=== PATIENT | female | born 2000 | race Caucasian/White ===

== ENCOUNTER 2022-01-18 10:44 | Observation (INO) | payer BC ==
[2022-01-18] MEDS ORDERED: Ondansetron ODT 4 MG TAB ONE (11:09)
[2022-01-18] MEDS ORDERED: Pantoprazole 40 MG VIAL ONE ×2 (11:38→11:39)
[2022-01-18] MEDS ORDERED: Famotidine/PF 20 mg/2ml Vial ONE (11:40)
[2022-01-18 12:07] LABS: #Monocytes 0.8 10x3/uL (0.0-1.1); #Neutrophils 11.6 10x3/uL (1.5-8.4); %Basophils 0.3 % (0.0-2.0); %Lymphocytes 7.6 % (18.0-47.0); %Monocytes 5.6 % (0.0-10.0); Hemoglobin 13.3 g/dL (12.0-15.5); Mean Corpuscular HGB CONC 34.1 g/dL (32.0-36.0); Mean Corpuscular Hemoglobin 28.8 pg (27.0-33.0); Mean Corpuscular Volume 84.4 fl (81.6-98.3); Platelet Count 228 10x3/uL (150-450); RBC Distribution Width 12.7 % (11.5-14.5); Red Blood Cell (RBC) Count 4.62 10x6/uL (3.90-5.03); White Blood Cell (WBC) Count 13.4 10x3/uL (3.5-10.5)
[2022-01-18 12:35] LABS: BHCG - Serum Negative (NEGATIVE); Pregs Control Background? CLEAR/WHITE (CLR/WHITE); Pregs Control Bar Appear? YES (CONTROL BAR)
[2022-01-18 12:41] LABS: ALT (SGPT) 40 U/L (8-55); AST (SGOT) 54 U/L (5-34); Albumin 4.4 g/dL (3.5-5.0); Alkaline Phosphatase 52 U/L (40-110); Anion Gap 13 mmol/L (10-20); BUN (Urea Nitrogen) 9 mg/dL (7.0-18.7); Bilirubin, Total 0.4 mg/dL (0.2-1.2); Calc. Creatinine Clearance 0 mL/min (70-130); Calcium 8.9 mg/dL (7.8-10.44); Carbon Dioxide 21 mmol/L (22-29); Chloride 107 mmol/L (98-107); Globulin 2.4 g/dL (2.4-3.5); Glucose 106 mg/dL (70-105); Lipase 11 U/L (8-78); Potassium 3.8 mmol/L (3.5-5.1); Protein, Total 6.8 g/dL (6.0-8.3); Sodium 137 mmol/L (136-145)
[2022-01-18 12:47] LABS: Bilirubin Neg (Negative); Blood, Urine Negative (Negative); Clarity Cloudy (Clear); Glucose, Urine (Dipstick) Normal (Negative); Ketone, Urine 5 mg/dL (Negative); Leukocyte Negative (Negative); Nitrite Negative (Negative); Protein, Urine (Dipstick) Negative (Neg-Trace); Specific Gravity, Urine 1.015 (1.002-1.036); Urobilinogen Normal mg/dL (Less than 2)
[2022-01-18] MEDS ORDERED: Piperacillin/Tazobactam 4.5 GM VIAL ONE (15:36)
[2022-01-18 18:08] VITALS: BMI 28.8
[2022-01-18] MEDS ORDERED: Morphine 4 MG/ML VIAL SLOW IVP PRN (19:23)
[2022-01-18] MEDS ORDERED: Ondansetron ODT 4 MG TAB SL PRN (19:30)
[2022-01-18] MEDS ORDERED: Ondansetron PF 4 MG/2 ML Vial IVP PRN (19:30)
[2022-01-18] MEDS: Piperacillin/Tazobactam 3.375 GM in Sodium Chloride 0.9% 100 ML IVPB SCH (20:43)
[2022-01-18] MEDS: Lactated Ringer's 1,000 ML IV SCH (20:43)
[2022-01-19] MEDS: Piperacillin/Tazobactam 3.375 GM in Sodium Chloride 0.9% 100 ML IVPB SCH (04:13)
[2022-01-19] MEDS: Lactated Ringer's 1,000 ML IV SCH (05:36)
[2022-01-19] MEDS ORDERED: Ondansetron PF 4 MG/2 ML Vial IVP PRN (11:15)
[2022-01-19] MEDS ORDERED: D5 1/2 NS w/20 mEq KCL 1,000 ML IV SCH (11:15)
[2022-01-19] MEDS ORDERED: Morphine 4 MG/ML VIAL SLOW IVP PRN (11:15)
[2022-01-19] MEDS ORDERED: EPINEPHrine 1 MG/ML AMP ONE (11:35)
[2022-01-19] MEDS ORDERED: Iopamidol 15 ML ONE (11:36)
[2022-01-19] MEDS ORDERED: Bupivacaine PF 0.5% 30 ML VIAL ONE (11:36)
[2022-01-19] MEDS ORDERED: Piperacillin/Tazobactam 3.375 GM in Sodium Chloride 0.9% 100 ML IVPB SCH (12:00)
[2022-01-19] MEDS ORDERED: Dexmedetomidine 200 MCG/2 ML VIAL ONE (12:07)
[2022-01-19] MEDS ORDERED: Fentanyl 100 MCG/2 ML VIAL ONE (12:08)
[2022-01-19] MEDS ORDERED: PROPOFOL 20 ML ONE ×2 (12:08→13:12)
[2022-01-19] MEDS ORDERED: Dexamethasone 20 MG/5 ML VIAL ONE (12:09)
[2022-01-19] MEDS ORDERED: Rocuronium Bromide 10 MG/ML (10ML VIAL) ONE (12:09)
[2022-01-19] MEDS ORDERED: Ondansetron PF 4 MG/2 ML Vial ONE (12:09)
[2022-01-19] MEDS ORDERED: Metoclopramide HCl 10 MG/2 ML VIAL ONE (12:09)
[2022-01-19] MEDS ORDERED: Ketorolac Tromethamine 30 MG/ML VIAL ONE (12:09)
[2022-01-19] MEDS ORDERED: Lidocaine 2% PF 5 ML VIAL ONE (12:09)
[2022-01-19] MEDS ORDERED: Succinylcholine 200 MG/10 ml SYRINGE FS ONE (12:10)
[2022-01-19] MEDS ORDERED: HYDROcodone/Acetaminophen 5/325 mg Tablet PO PRN ×2 (12:18)
[2022-01-19] MEDS ORDERED: Acetaminophen 325 MG TAB PO PRN ×2 (12:18)
[2022-01-19] MEDS ORDERED: ePHEDrine Sulfate 50 MG/10 ML VIAL ONE (12:47)
[2022-01-19] MEDS ORDERED: Glycopyrrolate 0.2 MG/ML 5 ML SYRINGE ONE (13:32)
[2022-01-19 15:46] LABS: SARS-CoV-2 PCR by NAA Not Detected (NotDetected)
[2022-01-19 16:00] VITALS: BP 101/60; TEMP 96.5
== END 2022-01-19 16:00 | disposition home or self-care (01) ==
LOC: CSHERS 10:44 → CSHTELE 17:45
PROVIDERS: ADMIT Surgery; ATTEND Surgery
PROC: 0FT44ZZ Resection of Gallbladder, Percutaneous Endoscopic Approach (ICD-10-PCS; principal; 2022-01-18)
PROC: BF031ZZ Plain Radiography of Gallbladder and Bile Ducts using Low Osmolar Contrast (ICD-10-PCS; 2022-01-18)
DX: K80.12 Calculus of gallbladder with acute and chronic cholecystitis without obstruction (principal); K21.9 Gastro-esophageal reflux disease without esophagitis; Z79.899 Other long term (current) drug therapy
CPT/HCPCS: 47532; 71045; 74177; 76705; 80053; 81003; 83690; 84484; 84703; 85025; 88304; 93005; 96365; 96375; 96376; C1713; C9113; G0378; J0171; J1100; J1885; J2001; J2405; J2543; J2704; J2765; J3010; J3480; J3490; J7120; Q0162; Q9967; S0020; S0028; U0003; U0005

== ENCOUNTER 2022-01-19 20:44 | Observation (INO) | payer BC, SELFPAY ==
[2022-01-19 21:15] LABS: #Basophils 0.1 10x3/uL (0.0-0.2); #Monocytes 0.2 10x3/uL (0.0-1.1); #Neutrophils 10.4 10x3/uL (1.5-8.4); %Basophils 0.4 % (0.0-2.0); %Lymphocytes 4.5 % (18.0-47.0); %Monocytes 1.4 % (0.0-10.0); %Neutrophils 93.4 % (40.0-75.0); Hemoglobin 13.8 g/dL (12.0-15.5); Mean Corpuscular Hemoglobin 28.8 pg (27.0-33.0); Mean Corpuscular Volume 84.8 fl (81.6-98.3); Mean Platelet Volume 10.7 fl (7.4-10.4); Platelet Count 237 10x3/uL (150-450); RBC Distribution Width 12.7 % (11.5-14.5); Red Blood Cell (RBC) Count 4.79 10x6/uL (3.90-5.03); White Blood Cell (WBC) Count 11.1 10x3/uL (3.5-10.5)
[2022-01-19] MEDS ORDERED: Morphine 4 MG/ML VIAL ONE ×2 (21:23→22:27)
[2022-01-19 21:26] LABS: ALT (SGPT) 67 U/L (8-55); AST (SGOT) 53 U/L (5-34); Albumin 4.9 g/dL (3.5-5.0); Alkaline Phosphatase 57 U/L (40-110); Anion Gap 16 mmol/L (10-20); BUN (Urea Nitrogen) 8 mg/dL (7.0-18.7); Bilirubin, Total 0.5 mg/dL (0.2-1.2); Calc. Creatinine Clearance 0 mL/min (70-130); Calcium 9.8 mg/dL (7.8-10.44); Carbon Dioxide 18 mmol/L (22-29); Chloride 109 mmol/L (98-107); Globulin 2.7 g/dL (2.4-3.5); Glucose 168 mg/dL (70-105); Protein, Total 7.6 g/dL (6.0-8.3); Sodium 139 mmol/L (136-145)
[2022-01-19] MEDS ORDERED: Ondansetron PF 4 MG/2 ML Vial ONE (22:27)
[2022-01-19] MEDS ORDERED: Pantoprazole 40 MG VIAL ONE (22:28)
[2022-01-19] MEDS ORDERED: Acetaminophen 325 MG TAB PO PRN (23:15)
[2022-01-19] MEDS ORDERED: Ondansetron PF 4 MG/2 ML Vial IVP PRN (23:15)
[2022-01-19] MEDS ORDERED: Ondansetron ODT 4 MG TAB SL PRN (23:15)
[2022-01-19] MEDS ORDERED: Lorazepam 2 MG/ML VIAL ONE (23:30)
[2022-01-20 00:32] VITALS: BMI 28.8
[2022-01-20 00:42] LABS: Lactic Acid 0.7 mmol/L (0.5-2.2)
[2022-01-20] MEDS: Sodium Chloride 0.9% 1,000 ML IV SCH ×2 (00:43→09:04)
[2022-01-20] MEDS: Morphine 4 MG/ML VIAL SLOW IVP PRN ×3 (02:04→11:05)
[2022-01-20 06:29] LABS: Lactic Acid 0.7 mmol/L (0.5-2.2)
[2022-01-20 06:34] LABS: #Neutrophils 11.6 10x3/uL (1.5-8.4); %Basophils 0.1 % (0.0-2.0); %Eosinophils 0.1 % (0.0-6.0); %Lymphocytes 7.8 % (18.0-47.0); %Monocytes 7.2 % (0.0-10.0); %Neutrophils 84.4 % (40.0-75.0); Hemoglobin 11.1 g/dL (12.0-15.5); Mean Corpuscular HGB CONC 32.9 g/dL (32.0-36.0); Mean Corpuscular Hemoglobin 28.7 pg (27.0-33.0); Mean Corpuscular Volume 87.1 fl (81.6-98.3); Mean Platelet Volume 11.2 fl (7.4-10.4); Platelet Count 179 10x3/uL (150-450); RBC Distribution Width 13.1 % (11.5-14.5); Red Blood Cell (RBC) Count 3.87 10x6/uL (3.90-5.03); White Blood Cell (WBC) Count 13.7 10x3/uL (3.5-10.5)
[2022-01-20 06:36] LABS: ALT (SGPT) 50 U/L (8-55); AST (SGOT) 36 U/L (5-34); Albumin 3.8 g/dL (3.5-5.0); Alkaline Phosphatase 43 U/L (40-110); Anion Gap 12 mmol/L (10-20); BUN (Urea Nitrogen) 7 mg/dL (7.0-18.7); Bilirubin, Total 0.4 mg/dL (0.2-1.2); Calc. Creatinine Clearance 169 mL/min (70-130); Calcium 8.8 mg/dL (7.8-10.44); Carbon Dioxide 20 mmol/L (22-29); Chloride 110 mmol/L (98-107); Globulin 2.2 g/dL (2.4-3.5); Glucose 111 mg/dL (70-105); Sodium 138 mmol/L (136-145)
[2022-01-20] MEDS ORDERED: Docusate 100 MG CAP PO PRN (12:11)
[2022-01-20] MEDS ORDERED: Ibuprofen 400 MG TAB PO PRN (14:44)
[2022-01-20] MEDS ORDERED: HYDROcodone/Acetaminophen 10/325 mg Tablet PO PRN (14:44)
[2022-01-20] MEDS ORDERED: Polyethylene Glycol 3350 17 GM Packet PO SCH ×2 (15:00→21:00)
[2022-01-20 17:42] VITALS: BP 115/62; TEMP 98.1
== END 2022-01-20 17:49 | disposition home or self-care (01) ==
LOC: CSHERS 20:44 → CSHTELE 23:35 → UNDOADMOB 23:35 → CSHTELE 23:38
PROVIDERS: ADMIT Surgery; ATTEND Surgery
DX: G89.18 Other acute postprocedural pain (principal); Z90.49 Acquired absence of other specified parts of digestive tract; Z79.899 Other long term (current) drug therapy; K03.81 Cracked tooth; I10 Essential (primary) hypertension; J45.909 Unspecified asthma, uncomplicated
CPT/HCPCS: 36415; 47532; 71045; 74019; 74177; 76705; 80053; 81003; 83605; 83690; 84484; 84703; 85025; 93005; 96374; 96375; 96376; C9113; G0378; J0171; J1100; J1885; J2001; J2060; J2270; J2405; J2543; J2704; J2765; J3010; J3480; J3490; J7050; J7120; Q0162; Q9967; S0020; S0028; U0003; U0005